=== PATIENT | male | born 1985 | race Two or more races ===

== ENCOUNTER 2022-10-01 11:10 | Emergency (ER) | payer OTHER, MEDICAID | END 2022-10-01 11:55 | disposition home or self-care (01) | LOC: JD.ED 11:10 | DX: S29.012A Strain of muscle and tendon of back wall of thorax, initial encounter (principal); S16.1XXA Strain of muscle, fascia and tendon at neck level, initial encounter; S39.012A Strain of muscle, fascia and tendon of lower back, initial encounter; V89.2XXA Person injured in unspecified motor-vehicle accident, traffic, initial encounter; Y92.410 Unspecified street and highway as the place of occurrence of the external cause | CPT/HCPCS: 99283 ==